=== PATIENT | male | born 1975 | race Two or more races ===

== ENCOUNTER 2023-05-07 09:55 | Outpatient (CLI) | payer OTHER | END 2023-05-07 10:04 | disposition home or self-care (01) | LOC: SONOGRAMA 09:55 | PROVIDERS: ATTEND Pathology Anatomic Pathology & Clinical Pathology | DX: D44.0 Neoplasm of uncertain behavior of thyroid gland (principal); D34 Benign neoplasm of thyroid gland; E04.1 Nontoxic single thyroid nodule; E07.9 Disorder of thyroid, unspecified ==

== ENCOUNTER 2023-07-09 10:01 | Outpatient (CLI) | payer OTHER | END 2023-07-09 10:03 | disposition home or self-care (01) | LOC: SONOGRAMA 10:01 | PROVIDERS: ATTEND Pathology Anatomic Pathology & Clinical Pathology | DX: D44.0 Neoplasm of uncertain behavior of thyroid gland (principal) ==